=== PATIENT | male | born 1970 | race Caucasian/White ===

== ENCOUNTER 2025-04-28 14:36 | Emergency (ER) | payer OTHER ==
[2025-04-28 14:54] VITALS: RESP 18; TEMP 98.4; BMI 28.8
[2025-04-28] MEDS: SODIUM CHLORIDE 1,000 ML IV STA (15:18)
[2025-04-28 15:43] LABS: ABSOLUTE IMMATURE GRANULOCYTES 0.01 x10^3/uL (0.0-0.031); BASOPHILS # 0.05 x10^3/uL (0.01-0.08); EOSINOPHIL % 0.1 % (0.8-7.0); EOSINOPHILS # 0.01 x10^3/uL (0.04-0.54); HEMATOCRIT 42.7 % (40.1-51.0); HEMOGLOBIN 14.7 g/dL (13.7-17.5); MCHC 34.4 g/dl (32.3-36.5); MEAN CELL VOLUME 88.6 fl (79.0-92.2); MEAN PLT VOLUME 10.6 fl (9.4-12.4); MONOCYTE # 0.56 x10^3/uL (0.30-0.82); MONOCYTE % 6.5 % (5.3-12.2); PLATELET COUNT 233 x10^3/uL (163-337); RDW 11.1 % (12.2-16.1)
[2025-04-28 15:47] LABS: ALBUMIN 4.5 g/dl (3.4-5.0); ALK PHOS 67 U/L (45-117); ANION GAP 12 mmol/L (4-13); BILIRUBIN,TOTAL 0.8 mg/dl (0.2-1); CALCIUM 9.7 mg/dl (8.5-10.1); CHLORIDE 99 mmol/L (98-107); CO2 24 mmol/L (21-32); CREATININE 1.1 mg/dl (0.6-1.3); GLUCOSE,RANDOM 249 mg/dl (74-106); SGOT/AST 15 U/L (15-37); SGPT/ALT 18 U/L (7-52); SODIUM 135 mmol/L (136-145)
[2025-04-28 16:18] VITALS: BP 140/81; PULSE 106
[2025-04-28 17:26] LABS: HCV DIAGNOSTIC IN-HOUSE W/RFLX NON-REACTIVE (NONREACTIVE)
[2025-05-01 00:43] LABS: HIV INTERPRETATION NEGATIVE (NEGATIVE)
== END 2025-04-28 17:08 | disposition home or self-care (01) ==
LOC: FER 14:36
PROC: 3E0337Z Introduction of Electrolytic and Water Balance Substance into Peripheral Vein, Percutaneous Approach (ICD-10-PCS; principal; 2025-04-28)
DX: R42 Dizziness and giddiness (principal); R07.89 Other chest pain; F41.9 Anxiety disorder, unspecified; R00.0 Tachycardia, unspecified
CPT/HCPCS: 36415; 71045-TC-FY; 80053; 84484; 85025; 86803; 87389; 93005; 99285-25